=== PATIENT | female | born 1955 | race Caucasian/White ===

== ENCOUNTER 2017-02-05 08:45 | Observation (INO) | payer BC ==
[~2017-02-05] VITALS: Ht 166.4 cm; Wt 81.0 kg
[~2017-02-05 08:45] MED LIST: ASPIR-LOW81 M1 PO; CALCIUM MG ZINC PO; CO Q-10100 MG PO; FISH OIL 1,2001 EAC3 PO; FLEXERIL10 MG PO; HARD NAILS2500 MCG PO; LEVOTHYROXINE75 MCG; LISINOPRIL5 MG; LISINOPRIL5 MG PO; PERCOCET 5/31 TABLET PO; PREMARIN0.3 MG; SIMVASTATIN10 MG; SIMVASTATIN10 MG PO; SYNTHROID75 MCG PO; ULTRAM50 MG PO; VITAMIN B CO1 TABLET PO; VITAMIN C1000 MG PO; VITAMIN C500 M1 PO; VITAMIN D31000 UNI2 PO; VITAMIN D35000 UNIT PO; ZOFRAN ODT4 MG PO; fish oil PO
[2017-02-05 10:21] LABS: EOSINOPHIL (%) 1.5 % (0-5); EOSINOPHIL COUNT 0.1 K/uL (0-0.3); HEMATOCRIT 40.3 % (36.0-46.0); IMMATURE GRANULOCYTE (%) 0.5 % (0.0-0.7); INSTRUMENT ABS NEUTROPHIL CT 3.5 K/uL; LYMPHOCYTE COUNT 2.1 K/uL (1.0-2.8); MCH 30.7 PG (29.0-34.0); MCHC 33.5 G/DL (30.0-36.0); MCV 91.6 FL (83-99); MEAN PLAT.VOLUME 10.2 uM^3 (9.5-12.4); MONOCYTE (%) 11.2 % (3-12); MONOCYTE COUNT 0.7 K/uL (0-0.8); NEUTROPHIL (%) 53.3 % (45-76); NEUTROPHIL COUNT 3.5 K/uL (1.8-6.4); PLATELET COUNT 226 K/uL (156-360); RBC DIS.WIDTH-SD 44.1 % (39-53); WHITE BLOOD COUNT 6.5 K/uL (4.1-10.2)
[2017-02-05 10:33] LABS: CHLORIDE 106 mEq/L (99-109); POTASSIUM 3.9 mEq/L (3.7-5.4); SODIUM 143 mEq/L (136-147)
[2017-02-05 10:34] LABS: GLUCOSE 124 mg/dL (70-99)
[2017-02-05 10:36] LABS: ANION GAP 8 MEQ/L (2-14)
[2017-02-05 10:38] LABS: GFR ESTIMATE (CALCULATED) > 59 mL/min/
[2017-02-05 10:39] LABS: UREA NITROGEN (BUN) 12 mg/dL (9-23)
[2017-02-05 10:43] LABS: TROP-I INTERPRETATION NEGATIVE; TROPONIN-I < 0.01 ng/mL (0.0-0.30)
[2017-02-05] MEDS ORDERED: ASPIR-LOW81 MG PO (14:08)
[2017-02-05] MEDS ORDERED: FISH OIL 1,2001 EAC3 PO (14:08)
[2017-02-05] MEDS ORDERED: RANITIDINE HCL150 MG PO (14:09)
[2017-02-05] MEDS ORDERED: BENTYL10 MG PO (14:09)
[2017-02-05] MEDS ORDERED: SIMVASTATIN40 MG PO (14:09)
[2017-02-05] MEDS ORDERED: BENTYL20 MG PO (14:10)
[2017-02-05 16:00] VITALS: BP 154/76
[2017-02-05 16:37] LABS: TROP-I INTERPRETATION NEGATIVE; TROPONIN-I < 0.01 ng/mL (0.0-0.30)
[2017-02-05 19:58] VITALS: BP 139/72
[2017-02-05 22:33] LABS: TROP-I INTERPRETATION NEGATIVE; TROPONIN-I < 0.01 ng/mL (0.0-0.30)
[2017-02-06 03:59] VITALS: BP 135/64
[2017-02-06 09:05] VITALS: BP 132/68
[2017-02-06] MEDS ORDERED: PEPCID20 MG PO (10:03)
[2017-02-06 12:13] VITALS: BP 172/81
== END 2017-02-06 12:51 | disposition home or self-care (01) ==
LOC: EME 08:45 → 5WEST 11:45 → EDOF 11:45 → 5WEST 15:19
PROVIDERS: Emergency Medicine; Internal Medicine
DX: R07.9 Chest pain, unspecified (principal); I25.10 Atherosclerotic heart disease of native coronary artery without angina pectoris; Z95.5 Presence of coronary angioplasty implant and graft; I10 Essential (primary) hypertension; E78.5 Hyperlipidemia, unspecified; K58.9 Irritable bowel syndrome, unspecified; Z87.891 Personal history of nicotine dependence; R42 Dizziness and giddiness; Z82.49 Family history of ischemic heart disease and other diseases of the circulatory system; Z79.82 Long term (current) use of aspirin; Z88.8 Allergy status to other drugs, medicaments and biological substances
CPT/HCPCS: 71010; 80048; 84484; 85025; 85730; 86900; 86901; 93005; 99281; 99284; G0378; J1650; J2405; J3010